=== PATIENT | female | born 1970 | race Caucasian/White ===

== ENCOUNTER → 2019-06-04 | Outpatient (CLI) | payer MEDICAID, SELFPAY ==
[2019-06-04 10:16] VITALS: BMI 32.2
--- NOTE | 2019-06-04 11:46 | RAD_ITS ---
STUDY: X-RAY CHEST REASON FOR EXAM: Female, 48 years old. Cough, shortness of breath, chest pain, COPD TECHNIQUE: PA and lateral views of the chest. COMPARISON: None. FINDINGS: The lungs are clear and expanded. There is no demonstrated pleural abnormality. Normal size heart. Normal mediastinum and edenilson. Normal visualized pulmonary arteries. Normal visualized aortic arch and descending thoracic aorta. Normal visualized thoracic spine. Normal visualized ribs, clavicles, and shoulders. There is no demonstrated abnormality of the visualized soft tissue structures of the upper abdomen. RAD/Chest PA and Lateral IMPRESSION: Normal x-ray examination of the chest. Electronically Signed: Sid Philippe MD at 17:05 EDT , Service support ,
[2019-06-04 11:51] LABS: Absolute Lymphocyte Count 2.41 X10^3/uL (0.83-4.51); Basophil# 0.14 X10^3/uL; Basophil% 0.9 % (0-1); Eosinophil# 0.88 X10^3/uL; Eosinophils% 5.4 % (0-5); Hematocrit 47.5 % (37-47); Hemoglobin 15.6 g/dL (12.0-15.0); Lymphocyte # 2.41 X10^3/ul (4.0); Lymphocyte % 14.7 % (19-41); Mean Corp Hgb Conc 32.8 g/dL (32-36); Mean Corpuscular Hgb 30.6 pg (27.0-32.0); Mean Corpuscular Volume 93.3 fL (81-99); Monocyte# 0.78 X10^3/uL; Monocyte% 4.8 % (0-10); NRBC Flagged by Analyzer 0 % (0-5); Neutrophil # 12.04 X10^3/uL (2.7-7.7); Neutrophil % 73.5 % (47-70); Platelet Count 362 K/mm3 (150-450); RBC Distribution Width CV 13.7 % (11.6-14.6); RBC Distribution Width SD 46.7 fl (35.1-43.9); Red Blood Count 5.09 M/mm3 (4.2-5.4); White Blood Count 16.4 K/mm3 (4.4-11.0)
[2019-06-07 13:00] LABS: Immunoglobulin E 145 IU/mL (6-495)
[2019-06-08 16:07] LABS: Alternaria tenuis <0.10 kU/L (Class 0); Ash, White <0.10 kU/L (Class 0); Aspergillus fumigatus 0.28 kU/L (Class 0/I); Bermuda Grass <0.10 kU/L (Class 0); Birch <0.10 kU/L (Class 0); Black Walnut <0.10 kU/L (Class 0); Cat Hair / Dander,Stand 1.04 kU/L (Class II); Cedar, Mountain <0.10 kU/L (Class 0); Cladosporium herbarum <0.10 kU/L (Class 0); Cockroach, American <0.10 kU/L (Class 0); Cottonwood <0.10 kU/L (Class 0); Dog Epithelia 7.63 kU/L (Class IV); Elm, American White <0.10 kU/L (Class 0); Immunoglobulin E 113 IU/mL (6-495); Maple/Box Elder <0.10 kU/L (Class 0); Mulberry, White <0.10 kU/L (Class 0); Oak, White <0.10 kU/L (Class 0); Pecan <0.10 kU/L (Class 0); Penicillium Notatum <0.10 kU/L (Class 0); Pigweed, Rough <0.10 kU/L (Class 0); Ragweed, Short/Common 0.18 kU/L (Class 0/I); Russian Thistle <0.10 kU/L (Class 0); Sheep Sorrel <0.10 kU/L (Class 0); Sycamore, American <0.10 kU/L (Class 0); Timothy Grass <0.10 kU/L (Class 0)
[2019-06-09 09:13] LABS: Mouse Urine 9.61 kU/L (Class IV)
== END | disposition home or self-care (01) ==
LOC: LABSPEC 11:22 → LAB 11:33
PROVIDERS: Family Provider Internal Medicine; PCP Internal Medicine; Referring Provider Internal Medicine Critical Care Medicine; Visit Provider Internal Medicine Critical Care Medicine
DX: J44.9 Chronic obstructive pulmonary disease, unspecified (principal); J30.9 Allergic rhinitis, unspecified
CPT/HCPCS: 36415; 71046; 82785; 85025; 86003; 87070; 87077; 87186; 87205

== ENCOUNTER → 2019-06-25 | Outpatient (CLI) | payer MEDICAID, SELFPAY ==
[2019-06-25 08:17] VITALS: BMI 32.2
== END | disposition home or self-care (01) ==
LOC: LABSPEC 15:30
PROVIDERS: Family Provider Internal Medicine; PCP Internal Medicine; Referring Provider Nurse Practitioner Acute Care; Visit Provider Nurse Practitioner Acute Care
DX: J44.9 Chronic obstructive pulmonary disease, unspecified (principal)
CPT/HCPCS: 87070; 87077; 87186; 87205

== ENCOUNTER → 2019-12-19 11:47 | Outpatient (CLI) | payer MEDICAID, SELFPAY ==
[2019-12-19 10:54] VITALS: BMI 32.2
== END ==
PROVIDERS: PCP Internal Medicine; Visit Provider Nurse Practitioner Acute Care
DX: J44.1 Chronic obstructive pulmonary disease with (acute) exacerbation (principal); J45.901 Unspecified asthma with (acute) exacerbation
CPT/HCPCS: 87070; 87077; 87186; 87205

== ENCOUNTER → 2020-02-21 07:27 | Outpatient (CLI) | payer MEDICAID, SELFPAY ==
[2020-01-09 12:59] VITALS: BMI 32.2
[2020-01-20 10:51] VITALS: BMI 32.2
== END ==
PROVIDERS: PCP Internal Medicine; Referring Provider Psychiatry & Neurology Neurology; Visit Provider Psychiatry & Neurology Neurology
DX: G40.909 Epilepsy, unspecified, not intractable, without status epilepticus (principal)
CPT/HCPCS: 95819

== ENCOUNTER → 2020-03-26 11:43 | Outpatient (CLI) | payer MEDICAID, SELFPAY ==
[2020-03-26 07:47] VITALS: BMI 32.2
== END ==
PROVIDERS: Referring Provider Nurse Practitioner Acute Care; Visit Provider Nurse Practitioner Acute Care
DX: J15.212 Pneumonia due to Methicillin resistant Staphylococcus aureus (principal)
CPT/HCPCS: 87070; 87077; 87186; 87205

== ENCOUNTER → 2020-08-27 14:15 | Outpatient (CLI) | payer MEDICAID, SELFPAY ==
[2020-06-11 10:38] VITALS: BMI 31.4
== END ==
PROVIDERS: PCP Internal Medicine; Visit Provider Nurse Practitioner Acute Care
DX: G47.33 Obstructive sleep apnea (adult) (pediatric) (principal)
CPT/HCPCS: 98960; G0463